=== PATIENT | female | born 1980 | race Caucasian/White ===

== ENCOUNTER 2019-06-24 06:50 | Inpatient (IN) ==
[2019-06-24] MEDS ORDERED: CITRIC ACID/SODIUM CITRATE 30 ML UDCUP PO ONE (07:15)
[2019-06-24] MEDS ORDERED: ceFAZolin 3,000 MG in SYRINGE 1 EACH IV ONE (07:15)
[2019-06-24] MEDS ORDERED: OXYTOCIN 10 UNIT/ML VIAL IM ONE (07:19)
[2019-06-24] MEDS ORDERED: OXYTOCIN/LR 30 UNIT/1,000 ML BAG IV ONE (07:19)
[2019-06-24] MEDS: LACTATED RINGERS 1,000 ML IV SCH ×3 (07:27→16:03)
[2019-06-24 07:33] LABS: Basophils % 0.4 % (0.0-0.8); Eosinophils % 0.2 % (0.00-10.9); Hematocrit 37.8 VOL% (35.7-47.0); Hemoglobin 12.7 GM/DL (12.0-16.0); Immature Granulocytes % 0.6 %; Immature Granulocytes Absolute 0.05 #; Lymphocytes % 23.2 % (21.3-54.2); Mean Corpuscular HGB Conc 33.6 GM/DL (32-36); Mean Corpuscular Volume 89.2 FL (87-102); Mean Platelet Volume 9.9 FL (9.6-12.0); Monocytes % 7.3 % (1.7-12.7); Neutrophils % 68.3 % (38.7-73.9); Platelet Count 201 T/CUMM (130-400); Red Blood Count 4.24 MC/CUMM (3.8-5.5); Red Cell Distribution Width 14.7 % (9.3-17.3); White Blood Count 8.5 T/CUMM (4-12)
[2019-06-24] MEDS ORDERED: FAMOTIDINE 20 MG/2 ML VIAL IV ONE (07:41)
[2019-06-24] MEDS ORDERED: hydrOXYzine HCL 25 MG/1 ML VIAL IM PRN (07:41)
[2019-06-24] MEDS ORDERED: diphenhydrAMINE 50 MG/1 ML VIAL IV PRN (07:41)
[2019-06-24] MEDS ORDERED: PROMETHAZINE 25 MG/1 ML VIAL IM PRN (07:41)
[2019-06-24 07:42] LABS: INR 0.9; PT Patient Result 9.4 SECS (9.6-12.2)
[2019-06-24] MEDS ORDERED: MORPHINE 10 MG/10 ML VIAL ONE (07:50)
[2019-06-24] MEDS ORDERED: fentaNYL 100 MCG/2 ML VIAL ONE (07:50)
[2019-06-24] MEDS ORDERED: LACTATED RINGERS 1,000 ML IV ONE ×2 (07:50→11:00)
[2019-06-24] MEDS ORDERED: ONDANSETRON 4 MG/2 ML VIAL ONE (07:50)
[2019-06-24] MEDS ORDERED: BUPIVACAINE SPINAL 0.75% 2 ML AMP SPINAL ONE (07:50)
[2019-06-24 07:55] LABS: Albumin 2.7 G/DL (3.4-5.0); Bilirubin,Direct 0.12 MG/DL (0.0-0.20); Bilirubin,Total 0.6 MG/DL (0.2-1.0); Calcium 9.1 MG/DL (8.5-10.1); Osmolality,Calculated 275.4 MOS/KG (273-304); Total Protein 6.5 G/DL (6.4-8.3); Uric Acid 3.6 MG/DL (2.6-6.0)
[2019-06-24 09:56] LABS: Apearance,Urine CLEAR (Clear); Bilirubin,Urine Negative (Negative); Blood, Urine Negative (Negative); Glucose,Urine (UA) Negative (Negative); Ketones,Urine 5 mg/dL (Negative); Mucus,Urine Occasional /LPF (Occasional); Nitrite,Urine Negative (Negative); Protein,Urine Negative; RBC,Urine <1 /HPF (0-4); Squamous Epithelial Cell,Urine Occasional /HPF (0-10); Urine Color Straw (Yellow); Urine Specific Gravity 1.008 (1.001-1.035); Urine Urobilinogen < 2.0 EU/DL (0.2-1.0); WBC,Urine <1 /HPF (0-6)
[2019-06-24 10:09] LABS: Cord Arterial Blood HCO3 22.3 MMOL/L
[2019-06-24 10:10] LABS: Cord Venous Blood HCO3 25.5 MMOL/L; Cord Venous Blood PCO2 50.2 MMHG
[2019-06-24] MEDS ORDERED: RHO(D) IMMUNE GLOBULIN 300 MCG SYRINGE IM ONE (10:19)
[2019-06-24] MEDS ORDERED: ACETAMINOPHEN 325 MG TABLET PO PRN (10:19)
[2019-06-24] MEDS ORDERED: OXYTOCIN/LR 20 UNIT/1,000 ML BAG IV ONE (10:19)
[2019-06-24] MEDS ORDERED: SIMETHICONE CHEW 80 MG TABLET PO PRN (10:19)
[2019-06-24] MEDS ORDERED: ONDANSETRON 4 MG/2 ML VIAL IV PRN (10:19)
[2019-06-24] MEDS ORDERED: MAGNESIUM HYDROXIDE SUSP 30 ML UDCUP PO PRN (10:19)
[2019-06-24] MEDS ORDERED: FUROSEMIDE 40 MG/4 ML VIAL ONE (10:24)
[2019-06-24] MEDS ORDERED: ceFAZolin 1,000 MG in SYRINGE 1 EACH IV SCH (10:30)
[2019-06-24] MEDS ORDERED: KETOROLAC 30 MG/1 ML VIAL ONE (11:00)
[2019-06-24] MEDS ORDERED: PHENYLEPHRINE 10 MG/1 ML VIAL IV ONE (11:00)
[2019-06-24] MEDS ORDERED: GLYCOPYRROLATE 0.4 MG/2 ML VIAL ONE (11:00)
[2019-06-24] MEDS ORDERED: HYDROmorphone 2 MG/1 ML VIAL IV PRN (11:18)
[2019-06-24] MEDS ORDERED: SODIUM CHLORIDE 0.9% 50 ML IV ONE (17:19)
[2019-06-24] MEDS: ceFAZolin 1,000 MG in SYRINGE 1 EACH IV SCH (17:28)
[2019-06-24 18:29] LABS: Basophils % 0.3 % (0.0-0.8); Eosinophils % 0.3 % (0.00-10.9); Hematocrit 34.6 VOL% (35.7-47.0); Hemoglobin 11.4 GM/DL (12.0-16.0); Immature Granulocytes % 0.4 %; Immature Granulocytes Absolute 0.04 #; Lymphocytes # 1.8 10*3/uL (1.4-4.0); Lymphocytes % 16.5 % (21.3-54.2); Mean Corpuscular HGB Conc 32.9 GM/DL (32-36); Mean Corpuscular Volume 91.1 FL (87-102); Mean Platelet Volume 10.5 FL (9.6-12.0); Neutrophils % 73.5 % (38.7-73.9); Platelet Count 165 T/CUMM (130-400); Red Cell Distribution Width 14.9 % (9.3-17.3)
[2019-06-24] MEDS: DOCUSATE SODIUM 100 MG CAPSULE PO SCH (21:51)
[2019-06-25] MEDS: LACTATED RINGERS 1,000 ML IV SCH (00:30)
[2019-06-25] MEDS: ceFAZolin 1,000 MG in SYRINGE 1 EACH IV SCH (02:31)
[2019-06-25 05:48] LABS: Basophils % 0.3 % (0.0-0.8); Eosinophils # 0.1 10*3/uL (0.0-0.87); Eosinophils % 0.9 % (0.00-10.9); Hematocrit 32.1 VOL% (35.7-47.0); Hemoglobin 10.6 GM/DL (12.0-16.0); Immature Granulocytes % 0.5 %; Immature Granulocytes Absolute 0.04 #; Lymphocytes # 1.9 10*3/uL (1.4-4.0); Lymphocytes % 21.5 % (21.3-54.2); Mean Corpuscular Volume 89.7 FL (87-102); Mean Platelet Volume 10.7 FL (9.6-12.0); Monocytes % 8.6 % (1.7-12.7); Neutrophils % 68.2 % (38.7-73.9); Platelet Count 185 T/CUMM (130-400); Red Blood Count 3.58 MC/CUMM (3.8-5.5); Red Cell Distribution Width 14.8 % (9.3-17.3); White Blood Count 8.8 T/CUMM (4-12)
[2019-06-25] MEDS ORDERED: INFLUENZA VIRUS VACCINE 0.5 ML SYRINGE IM ONE (07:42)
[2019-06-25] MEDS: BENZOCAINE/MENTHOL LOZENGE 18/BOX PO PRN ×2 (08:09→15:48)
[2019-06-25] MEDS: MULTIVITAMIN (PRENATAL) TABLET PO SCH (09:55)
[2019-06-25] MEDS: IBUPROFEN 800 MG TABLET PO PRN (09:55)
[2019-06-25] MEDS: DOCUSATE SODIUM 100 MG CAPSULE PO SCH ×2 (09:55→21:29)
[2019-06-26] MEDS: IBUPROFEN 800 MG TABLET PO PRN ×2 (00:05→11:36)
[2019-06-26] MEDS: MULTIVITAMIN (PRENATAL) TABLET PO SCH (09:59)
[2019-06-26] MEDS: DOCUSATE SODIUM 100 MG CAPSULE PO SCH (09:59)
[2019-06-26] MEDS ORDERED: INFLUENZA VIRUS VACCINE 0.5 ML SYRINGE IM ONE (10:53)
[2019-06-26] MEDS ORDERED: DIPH/TET/ACEL PERT BOOSTER VACCINE 0.5 ML VIAL IM ONE (10:54)
[2019-06-26 11:47] VITALS: BP 146/81
== END 2019-06-26 16:00 | disposition home or self-care (01) | DRG 540 ==
LOC: N.LDOUT 06:50 → N.LD 06:52 → N.OB 13:05
PROVIDERS: ADMIT Obstetrics & Gynecology; ATTEND Obstetrics & Gynecology
PROC: LDCSECT (ICD-10-PCS; 2019-06-24 09:00)